=== PATIENT | male | born 1975 | race Asian ===

== ENCOUNTER 2022-11-11 02:18 | Emergency (ER) | payer OTHER ==
[~2022-11-11] VITALS: Ht 167.6 cm; Wt 72.6 kg
--- NOTE | 2022-11-11 02:42 | NUR ---
BIBSELF FROM WORK C/O FEVER 100.5 TAKEN 0100. TOOK TYLENOL 500MG UPON TRIAGE TEMP 99.7. COUGH X2 DAYS AGO. TOOK HOME COVID TEST YESTERDAY - NEGATIVE RESULT. PT A/OX4. TOLERATING R/A WELL WITH NO RESP DISTRESS. PT AMBULATORY WITH STEADY GAIT. CONNECTED PT TO POX AND MONITOR. SAFETY MEASURES IN PLACE.
--- NOTE | 2022-11-11 03:00 | NUR ---
DR ECHO LLAMAS AT PT'S BEDSIDE FOR EVAL
--- NOTE | 2022-11-11 03:06 | NUR ---
COVID ANTIGEN, STEP, AND INFLUENZA RAPID SWAB COLLECTED AND SENT TO LAB
--- NOTE | 2022-11-11 03:09 | NUR ---
CLINICAL STAFF PHARMACIST AT PT'S BEDSIDE
--- NOTE | 2022-11-11 03:56 | NUR ---
Patient discharged to home in stable condition. Written and verbal after care instructions given. Patient verbalizes understanding of instruction.
[2022-11-11 03:59] VITALS: BP 138/89
== END 2022-11-11 04:00 | disposition home or self-care (01) ==
LOC: ER 02:22
DX: J06.9 Acute upper respiratory infection, unspecified (principal); R50.9 Fever, unspecified; Z20.822 Contact with and (suspected) exposure to COVID-19
CPT/HCPCS: 99284; 71045; 87426; 87804 ×2; 87880; C9803; 86403-TC

== ENCOUNTER 2023-01-24 08:10 | Outpatient (CLI) | payer BC, OTHER ==
[2023-01-24 10:11] LABS: BASOPHILS # (AUTO) 0.1 K/uL (0.0-0.2); HEMOGLOBIN 14.9 g/dL (13.5-17.5); MEAN CORPUSCULAR HGB CONC 33 g/dl (31.0-36.0); MONOCYTES # (AUTO) 0.4 K/uL (0.1-1.30); MONOCYTES % (AUTO) 6.2 % (2.0-12.0)
[2023-01-24 10:21] LABS: EOSINOPHILS % (AUTO) 2.9 % (0.0-6.0); HEMATOCRIT 46 % (39-51); LYMPHOCYTES # (AUTO) 2.7 K/uL (0.8-4.8); LYMPHOCYTES % (AUTO) 38.5 % (20.0-44.0); MEAN CORPUSCULAR VOLUME 93 fL (80-96); NEUTROPHILS # (AUTO) 3.7 K/uL (1.8-8.9); NEUTROPHILS % (AUTO) 51.4 % (43.0-81.0); PLATELET COUNT (AUTO) 293 K/uL (150-450); RED BLOOD CELL COUNT(AUTO) 4.95 MIL/uL (4.5-6.0); WHITE BLOOD COUNT (AUTO) 7.1 K/uL (4.3-11.0)
[2023-01-24 10:28] LABS: BILIRUBIN,TOTAL 0.5 mg/dL (0.2-1.0); CALCIUM, SERUM 9.4 mg/dL (8.5-10.1); POTASSIUM 3.8 mmol/L (3.5-5.1)
[2023-01-24 11:02] LABS: BILIRUBIN,URINE NEGATIVE (NEGATIVE); COLOR,URINE YELLOW (YELLOW); LEUKOCYTE ESTERASE ,URINE NEGATIVE (NEGATIVE); NITRITE, URINE NEGATIVE (NEGATIVE); PROTEIN,URINE NEGATIVE (NEGATIVE); THYROID STIMULATING HORMONE 1.321 uIU/mL (0.358-3.74); UGLUCOSE NEGATIVE (NEGATIVE); URIC ACID 6.5 mg/dL (2.6-7.2); UROBILINOGEN,URINE 0.2 EU/dL (0.2)
== END 2023-01-24 23:59 | disposition home or self-care (01) ==
LOC: LAB 08:10
PROVIDERS: ATTEND Legal Medicine
DX: Z00.00 Encounter for general adult medical examination without abnormal findings (principal); E11.9 Type 2 diabetes mellitus without complications; I10 Essential (primary) hypertension; E03.9 Hypothyroidism, unspecified; D64.9 Anemia, unspecified; E55.9 Vitamin D deficiency, unspecified; R53.1 Weakness; E78.00 Pure hypercholesterolemia, unspecified
CPT/HCPCS: 36415; 80053-TC; 80061-TC; 82306; 82607-TC; 82728-TC; 83540-TC; 84402; 84403; 84443-TC; 84550-TC; 85025-TC